=== PATIENT | male | born 1945 | race Asian ===

== ENCOUNTER → 2020-05-19 09:08 | Outpatient (CLI) | payer MEDICARE, MEDICAID, SELFPAY ==
--- NOTE | ~2020-05-19 | XR_ITS ---
XR knee RT 3V DATE: 05/19/2020 09:31 INDICATION: Generalized right knee swelling and pain for months TECHNIQUE: 3 views COMPARISON: None FINDINGS: There is lateral dislocation of the patella. No fracture or dislocation or joint effusion is evident. There is mild osteoarthritis at the medial c ompartment. No radiopaque intra-articular loose body or chondrocalcinosis is noted. No periosteal smiley ction or bone destruction. IMPRESSION: Lateral dislocation of the patella Mild osteoarthritis Reviewed, dictated and finalized at location B. [facility]
== END ==
PROVIDERS: PCP Physician Assistant; Visit Provider Physician Assistant
DX: M17.11 Unilateral primary osteoarthritis, right knee (principal); S83.014A Lateral dislocation of right patella, initial encounter; X58.XXXA Exposure to other specified factors, initial encounter
CPT/HCPCS: 73562